=== PATIENT | female | born 1930 | race Caucasian/White ===

== ENCOUNTER 2016-09-30 08:42 | Outpatient (CLI) | payer MEDICARE, OTHER ==
[2016-06-02 05:59] VITALS: BP 138/84
--- NOTE | 2016-09-30 09:35 | Diagnostic Imaging Report ---
[facility] [address] [facility] [address] [place], [place]. [address] Report Submission Date: Sep 30, 2016 9:31:41 AM CDT Patient Study Name: SAI MAGDALENO Date: Sep 30, 2016 9:06:19 AM CDT Modality Type: CR Gender: F Description: CHEST : 34 Institution: [facility] Physician: SALVATORE JULIANNA - OP 2 views of the chest History: LEFT SIDED CHEST PAIN AND DIFFICULTY BREATHING X 4 DAYS Findings: Comparison: Number 18, 2016 Mild cardiomegaly. Aortic calcification is present Again noted is prominent pulmonary hilum which may be due to pulmonary arterial hypertension. Emphysema Scattered lung granulomas are seen. There is apical pleural thickening There is minimal bibasilar atelectasis Left basilar pleural thickening versus tiny effusion. Calcified hilar lymph nodes are present. Degenerative changes thoracic spine with demineralized bones Impression: 1. Emphysema. No focal consolidation. Minimal bibasilar atelectasis. Apical pleural thickening. 2. Chronic interstitial lung changes. Calcified hilar lymph nodes and lung granuloma Emphysema. Apical pleural thickening Minimal bibasilar atelectasis Electronically signed on Sep 30, 2016 9:31:41 AM CDT by: Eileen ROSARIO
== END 2016-09-30 08:43 ==
LOC: LAB 08:42
PROVIDERS: ATTEND Family Medicine
DX: R07.2 Precordial pain (principal)
CPT/HCPCS: 36415; 71020; 84484

== ENCOUNTER 2016-12-19 08:59 | Outpatient (CLI) | payer MEDICARE, OTHER ==
[2016-06-02 05:59] VITALS: BP 138/84
[2016-12-19 09:16] LABS: BASOPHILS % 0.5 (0.0-1.5); EOSINOPHILS % 1.3 % (0.0-6.8); MEAN CORPUSCULAR HEMOGLOBIN 29.1 pg (28.0-34.0); MEAN CORPUSCULAR VOLUME 88.7 fl (80.0-100.0); MONOCYTES % 6.8 % (0.0-11.0); NEUTROPHILS # 2.8 # k/uL (1.4-7.7)
[2016-12-19 09:43] LABS: eGFR (African) > 60; eGFR (Non-African) > 60
--- NOTE | 2016-12-19 14:36 | Diagnostic Imaging Report ---
[facility] [address] [facility] [address] [address] Report Submission Date: Dec 19, 2016 1:27:21 PM CDT Patient Study Name: SAI MAGDALENO Date: Dec 19, 2016 9:38:55 AM CDT Modality Type: US\OT Gender: F Description: SARA : 34 Institution: Physician: [facility] Examination: API History: Occasional resting discomfort Findings:Right ankle brachial index range from 1.02 to 1.04. Left ankle brachial index range from 1.06 to 1.1 Impression: No restriction to hemodynamic flow. Electronically signed on Dec 19, 2016 1:27:21 PM CDT by: Patrice ROSARIO
== END 2016-12-19 09:00 ==
LOC: RAD 08:59
PROVIDERS: ATTEND Family Medicine
DX: R60.0 Localized edema (principal); E03.9 Hypothyroidism, unspecified
CPT/HCPCS: 36415; 80053; 84443; 85025; 93922

== ENCOUNTER 2017-01-09 11:08 | Outpatient (CLI) | payer MEDICARE, OTHER ==
[2016-06-02 05:59] VITALS: BP 138/84
== END 2017-01-09 11:10 ==
LOC: CARD 11:08
PROVIDERS: ATTEND Internal Medicine Cardiovascular Disease
DX: R60.9 Edema, unspecified (principal)

== ENCOUNTER 2017-03-26 09:39 | Outpatient (CLI) | payer MEDICARE, OTHER ==
[2016-06-02 05:59] VITALS: BP 138/84
[2017-03-26 10:19] LABS: eGFR (African) > 60; eGFR (Non-African) > 60
== END 2017-03-26 09:40 ==
LOC: LAB 09:39
PROVIDERS: ATTEND Family Medicine
DX: E78.2 Mixed hyperlipidemia (principal)
CPT/HCPCS: 36415; 80053; 80061

== ENCOUNTER 2017-09-26 09:30 | Outpatient (CLI) | payer MEDICARE, OTHER ==
[2016-06-02 05:59] VITALS: BP 138/84
[2017-09-26 10:15] LABS: eGFR (African) > 60; eGFR (Non-African) > 60
== END 2017-09-26 09:40 ==
LOC: RAD 09:30
PROVIDERS: ATTEND Family Medicine
DX: M85.89 Other specified disorders of bone density and structure, multiple sites (principal); Z78.0 Asymptomatic menopausal state; I10 Essential (primary) hypertension
CPT/HCPCS: 36415; 77080; 80048

== ENCOUNTER 2018-04-01 10:08 | Outpatient (CLI) | payer MEDICARE, OTHER ==
[2016-06-02 05:59] VITALS: BP 138/84
[2018-04-01 12:16] LABS: eGFR (Non-African) > 60
== END 2018-04-01 10:18 ==
LOC: LAB 10:08
PROVIDERS: ATTEND Family Medicine
DX: E78.00 Pure hypercholesterolemia, unspecified (principal); E03.9 Hypothyroidism, unspecified
CPT/HCPCS: 36415; 80053; 80061; 84443

== ENCOUNTER 2019-06-23 10:23 | Outpatient (CLI) | payer MEDICARE, OTHER ==
[2016-06-02 05:59] VITALS: BP 138/84
[2019-06-23 11:46] LABS: HDL 72 mg/dL (>40); eGFR (Non-African) > 60
== END 2019-06-23 10:28 ==
LOC: LAB 10:23
PROVIDERS: ATTEND Family Medicine
DX: E78.2 Mixed hyperlipidemia (principal); E03.9 Hypothyroidism, unspecified
CPT/HCPCS: 36415; 80053; 80061; 84443